=== PATIENT | female | born 1965 | race Caucasian/White ===

== ENCOUNTER 2017-07-08 23:23 | Inpatient (IN) | payer OTHER ==
[~2017-07-08] VITALS: Ht 162.6 cm; Wt 74.1 kg
[2017-07-08] MEDS ORDERED: ZOLP-413 PO (23:46)
[2017-07-08] MEDS ORDERED: LEVO100T5 PO (23:46)
[2017-07-08] MEDS ORDERED: OMEP40CA6 PO (23:46)
[2017-07-08] MEDS ORDERED: IRON PO (23:46)
[2017-07-08] MEDS ORDERED: VITAMIN D PO (23:46)
[2017-07-08] MEDS ORDERED: HYDR-879 PO (23:46)
[2017-07-08] MEDS ORDERED: EPI PEN (23:52)
[2017-07-09] MEDS ORDERED: CEFTRIAXONE PMX 2GM/50ML 50 ML ONE (00:28)
[2017-07-09] MEDS ORDERED: HYDROcodone/APAP 5/325 TABLET ONE (00:28)
[2017-07-09] MEDS ORDERED: CEFTRIAXONE PMX 2GM/50ML 50 ML IV SCH (00:30)
[2017-07-09] MEDS ORDERED: OXYcodone/APAP 5/325MG TABLET PO ONE (00:30)
[2017-07-09 00:32] LABS: MEAN CORPUSCULAR HEMOGLOBIN 29.6 pg (27.0-34.8); MEAN CORPUSCULAR HGB CONC 32.4 g/dL (32.4-35.8); MEAN CORPUSCULAR VOLUME 91.5 fL (80-100); MEAN PLATELET VOLUME 6.7 fL (7.4-10.4); PLATELET COUNT 617 x10^3/uL (130-400); RED BLOOD COUNT 4.04 x10^6/uL (3.82-5.3); RED CELL DISTRIBUTION WIDTH 15.9 % (9.6-15.2)
[2017-07-09 00:37] LABS: ALANINE AMINOTRANSFERASE 7 U/L (12-78); ALBUMIN 2.1 g/dL (3.4-5.0); ANION GAP 8 mmol/L (5-15); CALCIUM 7.8 mg/dL (8.5-10.1); CHLORIDE 98 mmol/L (98-107); CREATININE 0.42 mg/dL (0.55-1.02); MD YES
[2017-07-09 00:41] LABS: ALKALINE PHOSPHATASE 125 U/L (45-117); BILIRUBIN,TOTAL 0.2 mg/dL (0.2-1.0); TOTAL PROTEIN 7.2 g/dL (6.4-8.2); TROPONIN I < 0.015 ng/mL (0.000-0.045)
[2017-07-09] MEDS ORDERED: HYDROcodone/APAP 5/325 TABLET PO STA (00:41)
[2017-07-09 00:48] LABS: BAND#(MANUAL) 0.76 x10^3/uL; BANDS%(MANUAL) 4 % (0-7); EOS#(MANUAL) 0.19 x10^3/uL (0.0-0.4); EOS% (MANUAL) 1 % (1-7); LYMPH#(MANUAL) 2.28 x10^3/uL (1-3.4); LYMPHS% (MANUAL) 12 % (22-44); MONOS#(MANUAL) 0.95 x10^3/uL (0.3-2.7); MONOS% (MANUAL) 5 % (2-9); MYELOCYTES# (MANUAL) 0.76 x10^3/uL (0-0); MYELOCYTES% (MANUAL) 4 % (0-0); SEG#(MANUAL) 14.06 x10^3/uL (1.8-6.8); SEGS% (MANUAL) 74 % (42-75)
[2017-07-09 00:51] LABS: <PLATELET ESTIMATE> INCREASED; POLYCHROMASIA 1+
[2017-07-09 00:52] LABS: <PLT MORPHOLOGY> NORMAL PLT MORPH
[2017-07-09] MEDS ORDERED: SODIUM CHLORIDE 0.9% 1,000 ML IV ONE (02:58)
[2017-07-09] MEDS ORDERED: MORPHINE SULFATE 4 MG/ML, 1ML IVPush PRN (03:00)
[2017-07-09] MEDS ORDERED: ONDANSETRON 2MG/ML, 2ML IVPush PRN (03:30)
[2017-07-09] MEDS ORDERED: GUAIFENESIN/DM 200-20MG, 10ML UDC PO PRN (03:30)
[2017-07-09 03:53] VITALS: BP 110/73
[2017-07-09] MEDS: HYDROcodone/APAP 10/325 MG TABLET PO PRN ×2 (04:39→15:04)
[2017-07-09] MEDS: SODIUM CHLORIDE 0.9% 1,000 ML IV SCH ×2 (05:00→16:56)
[2017-07-09] MEDS: AMPICILLIN/SULBACTAM 1,500 MG in SODIUM CHLORIDE 0.9% 50 ML IV SCH ×2 (05:09→12:29)
[2017-07-09 09:02] VITALS: BP 103/65
[2017-07-09] MEDS: OMEPRAZOLE 20 MG CAPSULE.DR PO SCH ×2 (09:05→20:13)
[2017-07-09] MEDS: LEVOTHYROXINE 100 MCG TABLET PO SCH (09:05)
[2017-07-09 10:16] LABS: MICROSCOPIC NOT IND
[2017-07-09 10:50] LABS: CULTURE INDICATED? NO
[2017-07-09] MEDS ORDERED: OMNIPAQUE 350 MG/ML, 100ML BOTTLE ONE (10:55)
[2017-07-09 13:16] VITALS: BP 109/70
[2017-07-09] MEDS ORDERED: LIDOCAINE 2%, 20ML ONE (14:00)
[2017-07-09] MEDS ORDERED: LIDOCAINE 4% TOPICAL SOLUTION 50 ML ONE (14:00)
[2017-07-09] MEDS ORDERED: LIDOCAINE GEL 2%, 5ML ONE (14:00)
[2017-07-09] MEDS: NICOTINE 7 MG/24 HR PATCH.TD24 TD SCH (15:04)
[2017-07-09] MEDS: PIPERACILLIN/TAZO/PMX 3.375GM 50 ML IV SCH ×2 (15:36→21:08)
[2017-07-09 16:49] LABS: HCT (SEDRATE) 36.4 % (34.6-47.8)
[2017-07-09 19:15] VITALS: BP 94/62
[2017-07-09] MEDS: ZOLPIDEM 5MG TABLET PO SCH (20:13)
[2017-07-10 01:59] VITALS: BP 99/66
[2017-07-10 02:00] VITALS: BP 99/66
[2017-07-10] MEDS: PIPERACILLIN/TAZO/PMX 3.375GM 50 ML IV SCH ×4 (02:44→20:40)
[2017-07-10] MEDS ORDERED: SODIUM CHLORIDE 0.9% 1,000 ML IV SCH (03:21)
[2017-07-10 04:40] LABS: MEAN CORPUSCULAR HEMOGLOBIN 29.5 pg (27.0-34.8); MEAN CORPUSCULAR HGB CONC 32.2 g/dL (32.4-35.8); MEAN CORPUSCULAR VOLUME 91.4 fL (80-100); MEAN PLATELET VOLUME 6.6 fL (7.4-10.4); PLATELET COUNT 550 x10^3/uL (130-400); RED BLOOD COUNT 3.82 x10^6/uL (3.82-5.3); RED CELL DISTRIBUTION WIDTH 15.9 % (9.6-15.2)
[2017-07-10 04:41] LABS: ALBUMIN 1.8 g/dL (3.4-5.0); ANION GAP 4 mmol/L (5-15); CALCIUM 7.6 mg/dL (8.5-10.1); CHLORIDE 102 mmol/L (98-107)
[2017-07-10 04:44] LABS: ALANINE AMINOTRANSFERASE 7 U/L (12-78); ALKALINE PHOSPHATASE 112 U/L (45-117); BILIRUBIN,TOTAL 0.5 mg/dL (0.2-1.0); CREATININE 0.53 mg/dL (0.55-1.02); TOTAL PROTEIN 6.3 g/dL (6.4-8.2)
[2017-07-10] MEDS: HYDROcodone/APAP 10/325 MG TABLET PO PRN ×3 (05:17→21:51)
[2017-07-10] MEDS: LEVOTHYROXINE 100 MCG TABLET PO SCH (05:17)
[2017-07-10 05:48] LABS: MD YES
[2017-07-10 05:50] LABS: BAND#(MANUAL) 0.31 x10^3/uL; BANDS%(MANUAL) 2 % (0-7); METAMYELOCYTES# (MANUAL) 0.15 x10^3/uL (0-0); METAMYELOCYTES% (MANUAL) 1 % (0-1); MONOS#(MANUAL) 1.23 x10^3/uL (0.3-2.7); MONOS% (MANUAL) 8 % (2-9); MYELOCYTES# (MANUAL) 0.15 x10^3/uL (0-0); MYELOCYTES% (MANUAL) 1 % (0-0)
[2017-07-10 05:51] LABS: LYMPH#(MANUAL) 2.31 x10^3/uL (1-3.4); LYMPHS% (MANUAL) 15 % (22-44); SEG#(MANUAL) 11.24 x10^3/uL (1.8-6.8); SEGS% (MANUAL) 73 % (42-75)
[2017-07-10 05:52] LABS: <PLATELET ESTIMATE> INCREASED; <PLT MORPHOLOGY> NORMAL PLT MORPH; ANISOCYTOSIS 1+
[2017-07-10] MEDS: OMEPRAZOLE 20 MG CAPSULE.DR PO SCH ×2 (10:27→20:40)
[2017-07-10 10:58] VITALS: BP 84/54
[2017-07-10 13:42] VITALS: BP 108/70
[2017-07-10] MEDS: NICOTINE 7 MG/24 HR PATCH.TD24 TD SCH (14:43)
[2017-07-10 19:06] VITALS: BP 113/78
[2017-07-10 19:25] VITALS: BP 113/78
[2017-07-10] MEDS: ZOLPIDEM 5MG TABLET PO SCH (20:40)
[2017-07-11 01:36] VITALS: BP 96/61
[2017-07-11 01:38] VITALS: BP 96/61
[2017-07-11] MEDS: PIPERACILLIN/TAZO/PMX 3.375GM 50 ML IV SCH ×4 (02:54→20:55)
[2017-07-11] MEDS: HYDROcodone/APAP 10/325 MG TABLET PO PRN ×3 (02:55→20:54)
[2017-07-11] MEDS: LEVOTHYROXINE 100 MCG TABLET PO SCH (05:04)
[2017-07-11 05:52] LABS: BASOPHILS # (AUTO) 0.08 x10^3/uL (0-0.1); BASOPHILS % (AUTO) 1 % (0-1); EOSINOPHILS % (AUTO) 0 % (1-7); LYMPHOCYTES # (AUTO) 2.23 x10^3/uL (1-3.4); LYMPHOCYTES % (AUTO) 21 % (22-44); MD NO; MEAN CORPUSCULAR HEMOGLOBIN 29.2 pg (27.0-34.8); MEAN CORPUSCULAR VOLUME 91.2 fL (80-100); MEAN PLATELET VOLUME 6.7 fL (7.4-10.4); MONOCYTES # (AUTO) 1.11 x10^3/uL (0.2-0.8); MONOCYTES % (AUTO) 11 % (2-9); NEUTROPHILS # (AUTO) 7.05 x10^3/uL (1.8-6.8); NEUTROPHILS % (AUTO) 67 % (42-75); PLATELET COUNT 515 x10^3/uL (130-400); RED BLOOD COUNT 3.41 x10^6/uL (3.82-5.3); RED CELL DISTRIBUTION WIDTH 15.9 % (9.6-15.2)
[2017-07-11 05:56] LABS: ANION GAP 7 mmol/L (5-15); CALCIUM 7.4 mg/dL (8.5-10.1); CHLORIDE 102 mmol/L (98-107); CREATININE 0.47 mg/dL (0.55-1.02)
[2017-07-11 07:36] VITALS: BP 96/64
[2017-07-11] MEDS: OMEPRAZOLE 20 MG CAPSULE.DR PO SCH ×2 (09:44→20:53)
[2017-07-11] MEDS: NICOTINE 7 MG/24 HR PATCH.TD24 TD SCH (14:10)
[2017-07-11 14:25] VITALS: BP 93/56
[2017-07-11 19:54] VITALS: BP 108/73
[2017-07-11] MEDS: ZOLPIDEM 5MG TABLET PO SCH (22:02)
[2017-07-12 03:10] VITALS: BP 92/60
[2017-07-12] MEDS: PIPERACILLIN/TAZO/PMX 3.375GM 50 ML IV SCH ×2 (03:15→09:26)
[2017-07-12] MEDS: HYDROcodone/APAP 10/325 MG TABLET PO PRN ×2 (04:12→16:58)
[2017-07-12 04:20] LABS: HCT (SEDRATE) 38.3 % (34.6-47.8)
[2017-07-12 04:31] LABS: ALANINE AMINOTRANSFERASE 11 U/L (12-78); ALBUMIN 2.1 g/dL (3.4-5.0); ANION GAP 6 mmol/L (5-15); CALCIUM 7.8 mg/dL (8.5-10.1); CHLORIDE 102 mmol/L (98-107); CREATININE 0.61 mg/dL (0.55-1.02)
[2017-07-12 04:38] LABS: ALKALINE PHOSPHATASE 117 U/L (45-117); BILIRUBIN,TOTAL 0.2 mg/dL (0.2-1.0); TOTAL PROTEIN 7.7 g/dL (6.4-8.2)
[2017-07-12 07:39] LABS: BASOPHILS # (AUTO) 0.18 x10^3/uL (0-0.1); BASOPHILS % (AUTO) 2 % (0-1); EOSINOPHILS # (AUTO) 0.01 x10^3/uL (0-0.4); EOSINOPHILS % (AUTO) 0 % (1-7); LYMPHOCYTES # (AUTO) 2.73 x10^3/uL (1-3.4); LYMPHOCYTES % (AUTO) 24 % (22-44); MD NO; MEAN CORPUSCULAR HEMOGLOBIN 29.4 pg (27.0-34.8); MEAN CORPUSCULAR HGB CONC 32.2 g/dL (32.4-35.8); MEAN CORPUSCULAR VOLUME 91.2 fL (80-100); MONOCYTES # (AUTO) 1.16 x10^3/uL (0.2-0.8); MONOCYTES % (AUTO) 10 % (2-9); NEUTROPHILS # (AUTO) 7.12 x10^3/uL (1.8-6.8); NEUTROPHILS % (AUTO) 64 % (42-75); PLATELET COUNT 581 x10^3/uL (130-400); RED BLOOD COUNT 4.17 x10^6/uL (3.82-5.3); RED CELL DISTRIBUTION WIDTH 16.4 % (9.6-15.2)
[2017-07-12 08:10] VITALS: BP 97/63
[2017-07-12] MEDS ORDERED: morphine SULFATE 10 MG/ML, 1ML IVPush PRN (10:00)
[2017-07-12] MEDS ORDERED: MORPHINE SULFATE 4 MG/ML, 1ML ONE (10:07)
[2017-07-12] MEDS ORDERED: MORPHINE SULFATE 4 MG/ML, 1ML IVPush ONE (11:00)
[2017-07-12] MEDS ORDERED: FENTANYL PF 100 MCG/2ML ONE ×2 (12:08→12:09)
[2017-07-12] MEDS ORDERED: MIDAZOLAM 1 MG/ML, 5ML ONE (12:09)
[2017-07-12 13:10] VITALS: BP 100/66
[2017-07-12] MEDS: AMPICILLIN/SULBACTAM 3 GM in SODIUM CHLORIDE 0.9% 100 ML IV SCH ×2 (13:48→19:57)
[2017-07-12] MEDS: NICOTINE 7 MG/24 HR PATCH.TD24 TD SCH (13:49)
[2017-07-12] MEDS: OMEPRAZOLE 20 MG CAPSULE.DR PO SCH ×2 (14:54→21:18)
[2017-07-12] MEDS: LEVOTHYROXINE 100 MCG TABLET PO SCH (14:55)
[2017-07-12 20:31] VITALS: BP 101/63
[2017-07-12] MEDS: ZOLPIDEM 5MG TABLET PO SCH (21:18)
[2017-07-13 02:07] VITALS: BP 94/58
[2017-07-13] MEDS: AMPICILLIN/SULBACTAM 3 GM in SODIUM CHLORIDE 0.9% 100 ML IV SCH ×4 (02:30→20:47)
[2017-07-13] MEDS: HYDROcodone/APAP 10/325 MG TABLET PO PRN ×4 (04:13→22:38)
[2017-07-13 08:19] VITALS: BP 105/69
[2017-07-13] MEDS: LEVOTHYROXINE 100 MCG TABLET PO SCH (08:32)
[2017-07-13] MEDS: OMEPRAZOLE 20 MG CAPSULE.DR PO SCH ×2 (08:36→20:47)
[2017-07-13 14:28] VITALS: BP 112/77
[2017-07-13] MEDS: NICOTINE 7 MG/24 HR PATCH.TD24 TD SCH (14:53)
[2017-07-13 18:52] VITALS: BP 112/69
[2017-07-13] MEDS: ZOLPIDEM 5MG TABLET PO SCH (20:47)
[2017-07-14 03:20] VITALS: BP 112/78
[2017-07-14] MEDS: AMPICILLIN/SULBACTAM 3 GM in SODIUM CHLORIDE 0.9% 100 ML IV SCH ×3 (05:03→17:13)
[2017-07-14] MEDS: HYDROcodone/APAP 10/325 MG TABLET PO PRN ×3 (06:17→20:35)
[2017-07-14 06:54] VITALS: BP 95/64
[2017-07-14] MEDS: LEVOTHYROXINE 100 MCG TABLET PO SCH (07:41)
[2017-07-14] MEDS: OMEPRAZOLE 20 MG CAPSULE.DR PO SCH ×2 (09:16→20:35)
[2017-07-14] MEDS: NICOTINE 7 MG/24 HR PATCH.TD24 TD SCH (13:26)
[2017-07-14 16:11] VITALS: BP 97/63
[2017-07-14 18:36] VITALS: BP 105/70
[2017-07-14] MEDS: ZOLPIDEM 5MG TABLET PO SCH (20:35)
[2017-07-15] MEDS: AMPICILLIN/SULBACTAM 3 GM in SODIUM CHLORIDE 0.9% 100 ML IV SCH ×4 (01:43→19:40)
[2017-07-15 03:14] VITALS: BP 106/69
[2017-07-15] MEDS ORDERED: LEVOTHYROXINE 100 MCG TABLET ONE (03:53)
[2017-07-15] MEDS: LEVOTHYROXINE 100 MCG TABLET PO SCH (03:56)
[2017-07-15] MEDS: HYDROcodone/APAP 10/325 MG TABLET PO PRN ×3 (03:56→19:58)
[2017-07-15] MEDS: OMEPRAZOLE 20 MG CAPSULE.DR PO SCH ×2 (08:11→19:58)
[2017-07-15 08:38] VITALS: BP 97/65
[2017-07-15 12:52] VITALS: BP 115/76
[2017-07-15] MEDS: NICOTINE 7 MG/24 HR PATCH.TD24 TD SCH (13:46)
[2017-07-15 19:02] VITALS: BP 105/68
[2017-07-15] MEDS: ZOLPIDEM 5MG TABLET PO SCH (20:54)
[2017-07-16 01:25] VITALS: BP 98/65
[2017-07-16] MEDS: AMPICILLIN/SULBACTAM 3 GM in SODIUM CHLORIDE 0.9% 100 ML IV SCH ×4 (01:25→20:34)
[2017-07-16] MEDS: HYDROcodone/APAP 10/325 MG TABLET PO PRN ×4 (05:51→22:28)
[2017-07-16] MEDS: LEVOTHYROXINE 100 MCG TABLET PO SCH (05:51)
[2017-07-16 07:20] VITALS: BP 111/74
[2017-07-16] MEDS: OMEPRAZOLE 20 MG CAPSULE.DR PO SCH ×2 (08:35→20:36)
[2017-07-16 13:13] VITALS: BP 101/66
[2017-07-16] MEDS: NICOTINE 7 MG/24 HR PATCH.TD24 TD SCH (14:14)
[2017-07-16] MEDS: ZOLPIDEM 5MG TABLET PO SCH (20:35)
[2017-07-16 21:12] VITALS: BP 97/61
[2017-07-16 21:14] VITALS: BP 97/61
[2017-07-17 02:00] VITALS: BP 99/65
[2017-07-17] MEDS: AMPICILLIN/SULBACTAM 3 GM in SODIUM CHLORIDE 0.9% 100 ML IV SCH ×4 (02:04→20:00)
[2017-07-17 05:11] LABS: CALCIUM 7.6 mg/dL (8.5-10.1)
[2017-07-17 05:15] LABS: CREATININE 0.49 mg/dL (0.55-1.02)
[2017-07-17 05:16] LABS: BASOPHILS # (AUTO) 0.12 x10^3/uL (0-0.1); BASOPHILS % (AUTO) 2 % (0-1); EOSINOPHILS % (AUTO) 1 % (1-7); LYMPHOCYTES # (AUTO) 2.35 x10^3/uL (1-3.4); LYMPHOCYTES % (AUTO) 32 % (22-44); MD NO; MEAN CORPUSCULAR HEMOGLOBIN 29.5 pg (27.0-34.8); MEAN CORPUSCULAR VOLUME 92.1 fL (80-100); MEAN PLATELET VOLUME 6.8 fL (7.4-10.4); MONOCYTES # (AUTO) 0.94 x10^3/uL (0.2-0.8); MONOCYTES % (AUTO) 13 % (2-9); NEUTROPHILS # (AUTO) 3.75 x10^3/uL (1.8-6.8); NEUTROPHILS % (AUTO) 52 % (42-75); PLATELET COUNT 422 x10^3/uL (130-400); RED BLOOD COUNT 3.67 x10^6/uL (3.82-5.3); RED CELL DISTRIBUTION WIDTH 16.8 % (9.6-15.2)
[2017-07-17 05:30] LABS: ANION GAP 5 mmol/L (5-15); CHLORIDE 104 mmol/L (98-107)
[2017-07-17] MEDS: HYDROcodone/APAP 10/325 MG TABLET PO PRN ×2 (05:58→14:11)
[2017-07-17] MEDS: LEVOTHYROXINE 100 MCG TABLET PO SCH (05:59)
[2017-07-17 07:28] VITALS: BP 93/60
[2017-07-17] MEDS: OMEPRAZOLE 20 MG CAPSULE.DR PO SCH ×2 (08:15→20:00)
[2017-07-17] MEDS: LIDODERM 5% PATCH TD SCH (10:28)
[2017-07-17] MEDS: HEPARIN 5,000 UNITS/ML, 1ML SQ SCH ×2 (10:28→18:30)
[2017-07-17] MEDS: BACLOFEN 10 MG TABLET PO SCH ×2 (12:45→21:32)
[2017-07-17 13:13] VITALS: BP 98/64
[2017-07-17] MEDS: NICOTINE 7 MG/24 HR PATCH.TD24 TD SCH (14:11)
[2017-07-17 18:40] VITALS: BP 99/64
[2017-07-17] MEDS: ZOLPIDEM 5MG TABLET PO SCH (20:00)
[2017-07-17] MEDS ORDERED: BACLOFEN 10 MG TABLET PO SCH (21:00)
[2017-07-18 00:52] VITALS: BP 102/66
[2017-07-18] MEDS: HYDROcodone/APAP 10/325 MG TABLET PO PRN ×3 (01:03→16:48)
[2017-07-18] MEDS: AMPICILLIN/SULBACTAM 3 GM in SODIUM CHLORIDE 0.9% 100 ML IV SCH ×4 (02:01→21:52)
[2017-07-18] MEDS: HEPARIN 5,000 UNITS/ML, 1ML SQ SCH ×3 (02:30→19:10)
[2017-07-18] MEDS: LEVOTHYROXINE 100 MCG TABLET PO SCH (05:22)
[2017-07-18 07:16] VITALS: BP 101/68
[2017-07-18] MEDS: BACLOFEN 10 MG TABLET PO SCH ×2 (07:47→21:49)
[2017-07-18] MEDS: OMEPRAZOLE 20 MG CAPSULE.DR PO SCH ×2 (07:47→21:48)
[2017-07-18] MEDS: LIDODERM 5% PATCH TD SCH (10:07)
[2017-07-18] MEDS: NICOTINE 7 MG/24 HR PATCH.TD24 TD SCH (13:05)
[2017-07-18] MEDS: ACETAMINOPHEN 325 MG TABLET PO PRN (13:05)
[2017-07-18 14:18] VITALS: BP 105/59
[2017-07-18 20:00] VITALS: BP 116/70
[2017-07-18] MEDS: ZOLPIDEM 5MG TABLET PO SCH (21:48)
[2017-07-19] MEDS: HEPARIN 5,000 UNITS/ML, 1ML SQ SCH ×3 (02:16→17:40)
[2017-07-19 02:20] VITALS: BP 106/70
[2017-07-19] MEDS: HYDROcodone/APAP 10/325 MG TABLET PO PRN ×3 (02:30→18:19)
[2017-07-19 04:34] LABS: MEAN CORPUSCULAR HEMOGLOBIN 30.4 pg (27.0-34.8); MEAN CORPUSCULAR VOLUME 92.1 fL (80-100); MEAN PLATELET VOLUME 6.9 fL (7.4-10.4); PLATELET COUNT 347 x10^3/uL (130-400); RED BLOOD COUNT 3.39 x10^6/uL (3.82-5.3)
[2017-07-19 04:38] LABS: ALANINE AMINOTRANSFERASE 28 U/L (12-78); ALBUMIN 2.1 g/dL (3.4-5.0); ANION GAP 6 mmol/L (5-15); C-REACTIVE PROTEIN, QUANT 0.21 mg/dL (0.02-0.49); CALCIUM 7.7 mg/dL (8.5-10.1); CHLORIDE 107 mmol/L (98-107); CREATININE 0.53 mg/dL (0.55-1.02); RED CELL DISTRIBUTION WIDTH 17.2 % (9.6-15.2)
[2017-07-19 04:41] LABS: ALKALINE PHOSPHATASE 90 U/L (45-117); BILIRUBIN,TOTAL 0.1 mg/dL (0.2-1.0); TOTAL PROTEIN 6.4 g/dL (6.4-8.2)
[2017-07-19] MEDS: LEVOTHYROXINE 100 MCG TABLET PO SCH (04:57)
[2017-07-19] MEDS: AMPICILLIN/SULBACTAM 3 GM in SODIUM CHLORIDE 0.9% 100 ML IV SCH ×4 (04:57→21:54)
[2017-07-19 05:16] LABS: HCT (SEDRATE) 31.3 % (34.6-47.8)
[2017-07-19 05:53] LABS: MD SCAN
[2017-07-19 05:54] LABS: BASOPHILS # (AUTO) 0.06 x10^3/uL (0-0.1); BASOPHILS % (AUTO) 1 % (0-1); EOSINOPHILS % (AUTO) 2 % (1-7); LYMPHOCYTES # (AUTO) 2.02 x10^3/uL (1-3.4); LYMPHOCYTES % (AUTO) 34 % (22-44); MONOCYTES # (AUTO) 0.86 x10^3/uL (0.2-0.8); MONOCYTES % (AUTO) 15 % (2-9); NEUTROPHILS # (AUTO) 2.88 x10^3/uL (1.8-6.8); NEUTROPHILS % (AUTO) 49 % (42-75)
[2017-07-19 08:15] VITALS: BP 111/79
[2017-07-19] MEDS: OMEPRAZOLE 20 MG CAPSULE.DR PO SCH ×2 (08:23→20:05)
[2017-07-19] MEDS: BACLOFEN 10 MG TABLET PO SCH ×2 (08:23→20:05)
[2017-07-19] MEDS: LIDODERM 5% PATCH TD SCH (10:27)
[2017-07-19] MEDS: NICOTINE 7 MG/24 HR PATCH.TD24 TD SCH (10:27)
[2017-07-19 14:45] VITALS: BP 107/72
[2017-07-19] MEDS: ACETAMINOPHEN 325 MG TABLET PO PRN (16:10)
[2017-07-19 19:37] VITALS: BP 103/61
[2017-07-19] MEDS: ZOLPIDEM 5MG TABLET PO SCH (20:05)
[2017-07-20] MEDS: HEPARIN 5,000 UNITS/ML, 1ML SQ SCH ×3 (00:48→17:54)
[2017-07-20 01:45] VITALS: BP 100/57
[2017-07-20] MEDS: HYDROcodone/APAP 10/325 MG TABLET PO PRN ×4 (03:07→22:24)
[2017-07-20] MEDS: AMPICILLIN/SULBACTAM 3 GM in SODIUM CHLORIDE 0.9% 100 ML IV SCH ×4 (04:32→22:20)
[2017-07-20] MEDS: LEVOTHYROXINE 100 MCG TABLET PO SCH (05:16)
[2017-07-20 07:45] VITALS: BP 99/67
[2017-07-20] MEDS: BACLOFEN 10 MG TABLET PO SCH ×3 (08:16→20:35)
[2017-07-20] MEDS: OMEPRAZOLE 20 MG CAPSULE.DR PO SCH ×2 (08:17→20:36)
[2017-07-20] MEDS: LIDODERM 5% PATCH TD SCH (10:00)
[2017-07-20] MEDS: NICOTINE 7 MG/24 HR PATCH.TD24 TD SCH (12:55)
[2017-07-20 13:40] VITALS: BP 107/75
[2017-07-20 19:18] VITALS: BP 99/64
[2017-07-20] MEDS: ZOLPIDEM 5MG TABLET PO SCH (20:35)
[2017-07-21] MEDS: HEPARIN 5,000 UNITS/ML, 1ML SQ SCH ×4 (01:00→21:47)
[2017-07-21 01:08] VITALS: BP 100/65
[2017-07-21] MEDS: AMPICILLIN/SULBACTAM 3 GM in SODIUM CHLORIDE 0.9% 100 ML IV SCH ×4 (04:28→23:55)
[2017-07-21 07:17] VITALS: BP 105/72
[2017-07-21] MEDS: LEVOTHYROXINE 100 MCG TABLET PO SCH (07:19)
[2017-07-21] MEDS: HYDROcodone/APAP 10/325 MG TABLET PO PRN ×2 (09:31→17:40)
[2017-07-21] MEDS: LIDODERM 5% PATCH TD SCH (10:00)
[2017-07-21] MEDS ORDERED: LIDOCAINE-MPF 1%, 5ML ONE (12:42)
[2017-07-21] MEDS ORDERED: FENTANYL PF 100 MCG/2ML ONE (12:43)
[2017-07-21] MEDS ORDERED: MIDAZOLAM 1 MG/ML, 5ML ONE ×2 (12:43→12:44)
[2017-07-21] MEDS ORDERED: FLUMAZENIL 0.1 MG/1 ML, 5ML ONE (12:44)
[2017-07-21] MEDS ORDERED: NALOXONE 1 MG/ML, 2ML ONE (12:44)
[2017-07-21] MEDS: OMEPRAZOLE 20 MG CAPSULE.DR PO SCH ×2 (14:02→21:44)
[2017-07-21] MEDS: BACLOFEN 10 MG TABLET PO SCH ×3 (14:02→21:00)
[2017-07-21] MEDS: NICOTINE 7 MG/24 HR PATCH.TD24 TD SCH (14:10)
[2017-07-21 16:20] VITALS: BP 102/58
[2017-07-21 19:04] VITALS: BP 103/68
[2017-07-21] MEDS: ZOLPIDEM 5MG TABLET PO SCH (20:10)
[2017-07-21] MEDS: ACETAMINOPHEN 325 MG TABLET PO PRN (20:10)
[2017-07-22] MEDS: HYDROcodone/APAP 10/325 MG TABLET PO PRN ×3 (02:05→19:36)
[2017-07-22 02:55] VITALS: BP 95/62
[2017-07-22] MEDS: LEVOTHYROXINE 100 MCG TABLET PO SCH (06:13)
[2017-07-22] MEDS: BACLOFEN 10 MG TABLET PO SCH ×3 (06:13→16:09)
[2017-07-22] MEDS: AMPICILLIN/SULBACTAM 3 GM in SODIUM CHLORIDE 0.9% 100 ML IV SCH ×2 (06:14→12:53)
[2017-07-22 07:47] VITALS: BP 108/66
[2017-07-22] MEDS: OMEPRAZOLE 20 MG CAPSULE.DR PO SCH ×2 (08:50→20:05)
[2017-07-22] MEDS: LIDODERM 5% PATCH TD SCH (08:51)
[2017-07-22] MEDS: HEPARIN 5,000 UNITS/ML, 1ML SQ SCH ×2 (09:06→16:58)
[2017-07-22] MEDS: NICOTINE 7 MG/24 HR PATCH.TD24 TD SCH (12:52)
[2017-07-22 14:30] VITALS: BP 120/64
[2017-07-22] MEDS: CEFTRIAXONE PMX 1GM/50ML 50 ML IV SCH (16:09)
[2017-07-22 19:29] VITALS: BP 94/59
[2017-07-22] MEDS: ZOLPIDEM 5MG TABLET PO SCH ×2 (20:05→20:11)
[2017-07-23] MEDS: BACLOFEN 10 MG TABLET PO SCH ×3 (00:05→15:45)
[2017-07-23] MEDS: HEPARIN 5,000 UNITS/ML, 1ML SQ SCH ×2 (00:08→09:27)
[2017-07-23 02:53] VITALS: BP 93/60
[2017-07-23] MEDS: HYDROcodone/APAP 10/325 MG TABLET PO PRN ×2 (03:02→10:53)
[2017-07-23] MEDS: LEVOTHYROXINE 100 MCG TABLET PO SCH (05:55)
[2017-07-23 07:26] VITALS: BP 106/69
[2017-07-23] MEDS: OMEPRAZOLE 20 MG CAPSULE.DR PO SCH (09:25)
[2017-07-23] MEDS: LIDODERM 5% PATCH TD SCH (09:26)
[2017-07-23 13:44] VITALS: BP 101/62
[2017-07-23] MEDS: NICOTINE 7 MG/24 HR PATCH.TD24 TD SCH (13:59)
[2017-07-23] MEDS ORDERED: CEFT1FRO2 IV (14:25)
[2017-07-23] MEDS ORDERED: BACL-19 PO (14:25)
[2017-07-23] MEDS: CEFTRIAXONE PMX 1GM/50ML 50 ML IV SCH (14:33)
== END 2017-07-23 18:15 | disposition home or self-care (01) | DRG 177 ==
LOC: ED 23:59 → EDIP 07-09 02:58 → 3NW 07-09 03:39
PROVIDERS: ADMIT Hospitalist; ATTEND Family Medicine
PROC: 0B968ZZ Drainage of Right Lower Lobe Bronchus, Via Natural or Artificial Opening Endoscopic (ICD-10-PCS; 2017-07-12)
PROC: 0BD68ZX Extraction of Right Lower Lobe Bronchus, Via Natural or Artificial Opening Endoscopic, Diagnostic (ICD-10-PCS; principal; 2017-07-12 12:00)
PROC: 02HV33Z Insertion of Infusion Device into Superior Vena Cava, Percutaneous Approach (ICD-10-PCS; 2017-07-22)
PROC: B548ZZA Ultrasonography of Superior Vena Cava, Guidance (ICD-10-PCS; 2017-07-22)
DX: J85.1 Abscess of lung with pneumonia (principal); J15.9 Unspecified bacterial pneumonia; E43 Unspecified severe protein-calorie malnutrition; J44.0 Chronic obstructive pulmonary disease with (acute) lower respiratory infection; E11.9 Type 2 diabetes mellitus without complications; B96.89 Other specified bacterial agents as the cause of diseases classified elsewhere; E27.9 Disorder of adrenal gland, unspecified; E89.0 Postprocedural hypothyroidism; N28.89 Other specified disorders of kidney and ureter; F17.210 Nicotine dependence, cigarettes, uncomplicated; Z96.659 Presence of unspecified artificial knee joint; K21.9 Gastro-esophageal reflux disease without esophagitis; Z80.0 Family history of malignant neoplasm of digestive organs; Z80.1 Family history of malignant neoplasm of trachea, bronchus and lung; Z82.5 Family history of asthma and other chronic lower respiratory diseases; Z85.850 Personal history of malignant neoplasm of thyroid; Z90.49 Acquired absence of other specified parts of digestive tract; Z98.84 Bariatric surgery status; Z88.8 Allergy status to other drugs, medicaments and biological substances; Z88.1 Allergy status to other antibiotic agents; Z68.28 Body mass index [BMI] 28.0-28.9, adult
CPT/HCPCS: 31624; 31625; 36415; 36569; 71045; 71250; 71275; 74178; 76856; 76937; 77001; 80048; 80053; 81003; 82378; 82728; 83605; 83735; 83880; 84100; 84145; 84484; 85025; 85651; 86140; 86301; 86304; 86738; 87040; 87070; 87081; 87147; 87205; 88112; 88305; 93005; 99152; 99153; 99285; J0295; J0696; J1644; J2250; J2543; J3010; J3490; Q9967; C1751; J2310; J7030